=== PATIENT | female | born 1945 | race African-American/Black ===

== ENCOUNTER 2022-09-14 15:18 | Emergency (ER) | payer MEDICAID, MEDICARE, OTHER ==
[~2022-09-14] VITALS: Ht 167.6 cm; Wt 68.0 kg
[~2022-09-14 15:18] MED LIST: ASPI-867 PO; CLOP-31 PO; FURO40TA5 PO; ISOS20TA8 PO; LIP40 PO; LOSA100T33 PO; METF-416 PO; lantus
[2022-09-14 15:33] VITALS: BP 170/72; PULSE 86; RESP 16; TEMP 97.3; O2SAT 98
[2022-09-14 17:20] LABS: BASOPHILS % 0.6 % (0.0-2.0); EOSINOPHILS % 1.3 % (0.0-5.0); HEMATOCRIT. 31.3 % (36.0-48.0); HEMOGLOBIN. 10.6 g/dL (12.0-16.0); MEAN CORPUSCULAR HEMOGLOBIN 30.4 pg (28.0-32.0); MEAN CORPUSCULAR VOLUME 90.1 fL (81.0-99.0); NEUTROPHILS % 57.1 % (40.0-76.0); PLATELET 268 x1000/uL (130-400); RED BLOOD CELL COUNT 3.48 mill/uL (4.2-5.4); RED CELL DISTRIBUTION WIDTH 13.6 % (11.6-14.6)
[2022-09-14 17:29] LABS: CHLORIDE 111 mEq/L (98-107)
[2022-09-14] MEDS ORDERED: FAMOTIDINE 20MG TABLET PO ONE (18:45)
[2022-09-14] MEDS ORDERED: MAGNESIUM/ALUMINUM HYDROXIDE/SIMETHICONE 30ML UDC PO ONE (18:45)
[2022-09-14] MEDS ORDERED: MAGNESIUM/ALUMINUM HYDROXIDE/SIMETHICONE 30ML UDC PO NR (21:08)
[2022-09-14] MEDS ORDERED: FAMOTIDINE 20MG TABLET PO NR (21:08)
[2022-09-14] MEDS ORDERED: MAG-55 MT (21:32)
[2022-09-14] MEDS ORDERED: FAMO40TA70 MT (21:32)
== END 2022-09-14 22:48 | disposition left against medical advice (07) ==
LOC: ER 15:18
DX: Z53.21 Procedure and treatment not carried out due to patient leaving prior to being seen by health care provider (principal); I10 Essential (primary) hypertension; E11.9 Type 2 diabetes mellitus without complications; Z86.73 Personal history of transient ischemic attack (TIA), and cerebral infarction without residual deficits
CPT/HCPCS: 36415; 71045; 80053; 82962; 83880; 84484; 85025; 93005; 99284

== ENCOUNTER 2024-06-03 10:02 | Inpatient (IN) | payer OTHER, MEDICARE ==
[~2024-06-03] VITALS: Ht 175.3 cm; Wt 64.9 kg
[~2024-06-03 10:02] MED LIST changes: +ASPI-1160 PO; -ASPI-867 PO; +FAMO40TA70 MT; +LEVO25TA7 PO; +NITR100C MT
[2024-06-03] MEDS: LABETALOL 5MG/ML 4ML INJ IV NR (11:30)
[2024-06-03 12:00] LABS: BASOPHILS % 0.4 % (0.0-2.0); EOSINOPHILS % 1.6 % (0.0-5.0); MEAN CORPUSCULAR HGB CONC 32.3 g/dL (31.0-37.0); MEAN CORPUSCULAR VOLUME 89.8 fL (81.0-99.0); MEAN PLATELET VOLUME 7.3 fl (7.4-10.4); MONOCYTES % 4.6 % (2.0-8.0); NEUTROPHILS % 57.4 % (40.0-76.0); PLATELET 223 x1000/uL (130-400); RED BLOOD CELL COUNT 3.79 mill/uL (4.2-5.4); RED CELL DISTRIBUTION WIDTH 13.7 % (11.6-14.6); WHITE BLOOD COUNT 5.1 x1000/uL (4.5-11.0)
[2024-06-03 12:15] LABS: CHLORIDE 109 mEq/L (98-107); POTASSIUM 3.9 mEq/L (3.5-5.1); SODIUM 140 mEq/L (136-145)
[2024-06-03 12:16] LABS: CARBON DIOXIDE 24 mEq/L (21-32)
[2024-06-03 12:17] LABS: CALCIUM 9.1 mg/dL (8.7-10.4)
[2024-06-03 12:18] LABS: PROTHROMBIN TIME 10.7 sec (9.6-11.0)
[2024-06-03 12:21] LABS: CREATININE 1.3 mg/dL (0.6-1.0); GLUCOSE 192 mg/dL (70-105); TROPONIN I HIGH SENSITIVITY 11 ng/L (3.0-34); UREA NITROGEN BLOOD 14 mg/dL (9-23)
[2024-06-03 12:22] LABS: ETHANOL BLOOD < 10 mg/dL (<10)
[2024-06-03 14:29] LABS: CLARITY URINE CLEAR (CLEAR); COLOR URINE YELLOW (YELLOW); GLUCOSE URINE NEGATIVE (NEGATIVE); KETONES URINE NEGATIVE (NEGATIVE); LEUKOCYTE ESTERASE URINE 2+ (NEGATIVE); NITRITE URINE NEGATIVE (NEGATIVE); OCCULT BLOOD URINE NEGATIVE (NEGATIVE); PH URINE 7.5 (4.5-8.0); PROTEIN URINE TRACE (NEGATIVE); SPECIFIC GRAVITY URINE 1.008 (1.005-1.030); UROBILINOGEN URINE 0.2 E.U./dL (0.2-1.0)
[2024-06-03] MEDS: HYDRALAZINE 20MG/ML VIAL IV ONE (14:44)
[2024-06-03 14:50] LABS: TROPONIN I HIGH SENSITIVITY 12 ng/L (3.0-34)
[2024-06-03 14:52] LABS: SQUAMOUS EPITHELIAL CELL URINE 1+ /lpf (RARE/1+)
[2024-06-03 14:53] LABS: BACTERIA URINE 1+; WBC URINE 0-2 /hpf (0-2)
[2024-06-03] MEDS ORDERED: GUAIFENESIN 200MG/10ML SUGAR FREE UDC PO PRN (15:00)
[2024-06-03] MEDS ORDERED: DOCUSATE SODIUM 100MG CAPSULE PO PRN (15:00)
[2024-06-03] MEDS ORDERED: ONDANSETRON HCL 4MG/2ML INJ IV PRN (15:00)
[2024-06-03] MEDS ORDERED: ACETAMINOPHEN 325MG TABLET PO PRN ×2 (15:00)
[2024-06-03] MEDS ORDERED: IPRATROPIUM/ALBUTEROL 0.5-3(2.5)MG/3ML NEB HHN PRN (15:00)
[2024-06-03] MEDS ORDERED: DEXTROSE 50% WATER 50ML SYRINGE IV PRN (15:00)
[2024-06-03 15:14] LABS: *AMPHETAMINES SCREEN URINE NEGATIVE (NEGATIVE)
[2024-06-03 15:15] LABS: *BARBITURATES SCREEN URINE NEGATIVE (NEGATIVE); *BENZODIAZEPINES SCREEN URINE NEGATIVE (NEGATIVE); *COCAINE SCREEN URINE NEGATIVE (NEGATIVE); CANNABINOID URINE SCREEN NEGATIVE (NEGATIVE); ECSTASY MDMA SCREEN URINE NEGATIVE (NEGATIVE); METHADONE URINE SCREEN NEGATIVE (NEGATIVE); OPIATES URINE SCREEN NEGATIVE (NEGATIVE); PHENCYCLIDINE URINE SCREEN NEGATIVE (NEGATIVE)
[2024-06-03] MEDS: ISOSORBIDE MONONITRATE 30MG TABLET SR 24HR PO SCH (15:23)
[2024-06-03] MEDS: AMLODIPINE 5MG TABLET PO SCH (15:29)
[2024-06-03 16:15] LABS: FOLIC ACID (FOLATE) SERUM 13.56 ng/mL (>5.38); VITAMIN B12 SERUM 467 pg/mL (211-911)
[2024-06-03] MEDS: HYDRALAZINE 20MG/ML VIAL IV PRN (17:48)
[2024-06-03 20:30] VITALS: BP 165/72; PULSE 66; RESP 18; TEMP 36.1; O2SAT 99
[2024-06-03] MEDS: INSULIN LISPRO 100 UNITS/ML SUBCUT SCH (21:00)
[2024-06-03] MEDS: BLOOD SUGAR DIAGNOSTIC STRIP TEST SCH (21:09)
[2024-06-03] MEDS: ATORVASTATIN CALCIUM 40MG TABLET PO SCH (21:09)
[2024-06-03] MEDS: FAMOTIDINE 20MG TABLET PO SCH (21:09)
[2024-06-03] MEDS: LOSARTAN 100 MG TABLET PO SCH (21:09)
[2024-06-03 21:30] VITALS: BP 165/72; PULSE 66; RESP 18; TEMP 36.1
[2024-06-04] VITALS (11 sets, daily range): BP systolic 119–189; BP diastolic 49–100; PULSE 53–91; RESP 20; TEMP 36.5–37; O2SAT 95–98
[2024-06-04 00:15] LABS: TROPONIN I HIGH SENSITIVITY 14 ng/L (3.0-34)
[2024-06-04] MEDS: CLONIDINE 0.1MG TABLET PO PRN (05:23)
[2024-06-04] MEDS: CLOPIDOGREL 75MG TABLET PO SCH (09:36)
[2024-06-04] MEDS: ASPIRIN 81MG TABLET PO SCH (09:37)
[2024-06-04 11:10] LABS: BASOPHILS % 0.4 % (0.0-2.0); HEMATOCRIT. 36.3 % (36.0-48.0); HEMOGLOBIN. 11.5 g/dL (12.0-16.0); LYMPHOCYTES % 29.8 % (20.0-50.0); MEAN CORPUSCULAR HEMOGLOBIN 28.6 pg (28.0-32.0); MEAN CORPUSCULAR HGB CONC 31.7 g/dL (31.0-37.0); MEAN CORPUSCULAR VOLUME 90.2 fL (81.0-99.0); MEAN PLATELET VOLUME 7.6 fl (7.4-10.4); MONOCYTES % 6.7 % (2.0-8.0); NEUTROPHILS % 60.1 % (40.0-76.0); PLATELET 250 x1000/uL (130-400); RED BLOOD CELL COUNT 4.02 mill/uL (4.2-5.4); WHITE BLOOD COUNT 4.9 x1000/uL (4.5-11.0)
[2024-06-04 11:35] LABS: POTASSIUM 3.9 mEq/L (3.5-5.1)
[2024-06-04 11:37] LABS: CALCIUM 9.4 mg/dL (8.7-10.4)
[2024-06-04 11:41] LABS: CREATININE 1.2 mg/dL (0.6-1.0)
[2024-06-04] MEDS ORDERED: ASPIRIN 81MG EC TABLET PO SCH (14:30)
[2024-06-04] MEDS ORDERED: CLOPIDOGREL 75MG TABLET PO SCH (14:30)
[2024-06-04] MEDS: ATORVASTATIN CALCIUM 40MG TABLET PO SCH (20:57)
[2024-06-05] VITALS: BP 147/59; PULSE 78; RESP 20; TEMP 37; O2SAT 98
[2024-06-05 04:00] VITALS: BP_SYST 119; BP_SYST 168; BP_DIAS 55; BP_DIAS 73; PULSE 71; RESP 18; TEMP 36.9; TEMP 37; O2SAT 98
[2024-06-05 08:00] VITALS: BP 110/60; PULSE 64; RESP 20; TEMP 36.1; O2SAT 96
[2024-06-05] MEDS ORDERED: AMLODIPINE 10MG TABLET PO SCH (09:00)
[2024-06-05] MEDS: CLOPIDOGREL 75MG TABLET PO SCH (09:09)
[2024-06-05] MEDS: ASPIRIN 81MG EC TABLET PO SCH (09:09)
[2024-06-05 09:14] LABS: POTASSIUM 3.6 mEq/L (3.5-5.1)
[2024-06-05 09:15] LABS: CALCIUM 9.2 mg/dL (8.7-10.4)
[2024-06-05 09:20] LABS: CREATININE 1.1 mg/dL (0.6-1.0)
[2024-06-05 12:00] VITALS: BP 179/67; PULSE 55; RESP 18; TEMP 36.1; O2SAT 96
[2024-06-05 16:00] VITALS: BP 145/62; PULSE 79; RESP 18; TEMP 36; O2SAT 96
[2024-06-05] MEDS: ISOSORBIDE MONONITRATE 30MG TABLET SR 24HR PO SCH (17:07)
[2024-06-05 20:00] VITALS: BP 154/89; PULSE 80; RESP 17; TEMP 36; O2SAT 98
[2024-06-06] VITALS: BP 145/60; PULSE 77; RESP 18; TEMP 36.7; O2SAT 98
[2024-06-06 04:00] VITALS: BP 138/55; RESP 17; TEMP 36.6; O2SAT 97
[2024-06-06 07:22] LABS: CALCIUM 9.6 mg/dL (8.7-10.4); POTASSIUM 3.8 mEq/L (3.5-5.1)
[2024-06-06 07:27] LABS: CREATININE 1.1 mg/dL (0.6-1.0)
[2024-06-06 08:00] VITALS: BP 140/56; PULSE 70; RESP 20; TEMP 36.4; O2SAT 98
[2024-06-06] MEDS: AMLODIPINE 10MG TABLET PO SCH (09:01)
[2024-06-06 12:00] VITALS: BP 159/50; PULSE 61; RESP 18; TEMP 36.5; O2SAT 100
[2024-06-06 16:00] VITALS: BP 127/48; PULSE 61; RESP 20; TEMP 36.4; O2SAT 98
[2024-06-06] MEDS: ISOSORBIDE MONONITRATE 30MG TABLET SR 24HR PO SCH (16:54)
[2024-06-06] MEDS: LOSARTAN 100 MG TABLET PO SCH (16:54)
[2024-06-06] MEDS: INSULIN LISPRO 100 UNITS/ML SUBCUT SCH (16:58)
[2024-06-06 20:51] VITALS: BP 154/63; PULSE 74; RESP 18; TEMP 37; O2SAT 99
[2024-06-06] MEDS: INSULIN GLARGINE 100 UNITS/ML SUBCUT SCH (22:06)
[2024-06-07] VITALS: BP 138/70; PULSE 67; RESP 18; TEMP 36.9; O2SAT 98
[2024-06-07 04:00] VITALS: BP 146/57; PULSE 98; RESP 18; TEMP 37; O2SAT 98
[2024-06-07 07:03] LABS: BASOPHILS % 0.5 % (0.0-2.0); EOSINOPHILS % 2.4 % (0.0-5.0); HEMATOCRIT. 34.7 % (36.0-48.0); HEMOGLOBIN. 11.3 g/dL (12.0-16.0); LYMPHOCYTES % 48.4 % (20.0-50.0); MEAN CORPUSCULAR HEMOGLOBIN 29.2 pg (28.0-32.0); MEAN CORPUSCULAR HGB CONC 32.6 g/dL (31.0-37.0); MEAN CORPUSCULAR VOLUME 89.5 fL (81.0-99.0); MEAN PLATELET VOLUME 7.2 fl (7.4-10.4); MONOCYTES % 8.6 % (2.0-8.0); NEUTROPHILS % 40.1 % (40.0-76.0); PLATELET 232 x1000/uL (130-400); RED BLOOD CELL COUNT 3.88 mill/uL (4.2-5.4); RED CELL DISTRIBUTION WIDTH 13.6 % (11.6-14.6); WHITE BLOOD COUNT 4.4 x1000/uL (4.5-11.0)
[2024-06-07 08:00] VITALS: BP 130/58; PULSE 75; RESP 18; TEMP 36.4; O2SAT 98
[2024-06-07 08:42] LABS: CALCIUM 9.6 mg/dL (8.7-10.4); CHLORIDE 107 mEq/L (98-107); POTASSIUM 3.8 mEq/L (3.5-5.1); SODIUM 142 mEq/L (136-145)
[2024-06-07 08:43] LABS: CARBON DIOXIDE 26 mEq/L (21-32)
[2024-06-07 08:48] LABS: GLUCOSE 89 mg/dL (70-105)
[2024-06-07 08:49] LABS: UREA NITROGEN BLOOD 15 mg/dL (9-23)
[2024-06-07] MEDS: ISOSORBIDE MONONITRATE 60MG TABLET SR 24HR PO SCH (08:50)
[2024-06-07 08:51] LABS: PHOSPHORUS 4.4 mg/dL (2.5-4.9)
[2024-06-07 12:00] VITALS: BP 145/62; PULSE 100; RESP 19; TEMP 36.5; O2SAT 100
[2024-06-07 16:00] VITALS: BP 134/59; PULSE 72; RESP 18; TEMP 36.4; O2SAT 100
[2024-06-07 20:00] VITALS: BP 179/60; PULSE 79; RESP 19; TEMP 36.1; O2SAT 98
[2024-06-08] VITALS: BP 151/53; PULSE 58; RESP 20; TEMP 36.2; O2SAT 98
[2024-06-08 04:00] VITALS: BP 152/50; PULSE 72; RESP 20; TEMP 36.3; O2SAT 98
[2024-06-08 08:00] VITALS: BP 128/71; PULSE 77; RESP 18; TEMP 36.7; O2SAT 98
[2024-06-08 12:00] VITALS: BP 143/53; PULSE 67; RESP 19; TEMP 37.1; O2SAT 98
[2024-06-08] MEDS: LORAZEPAM 0.5MG TABLET PO PRN (12:44)
[2024-06-08 16:00] VITALS: BP 163/72; PULSE 70; RESP 18; TEMP 36.8; O2SAT 100
[2024-06-08 19:01] LABS: BASOPHILS % 0.4 % (0.0-2.0); EOSINOPHILS % 2.2 % (0.0-5.0); HEMATOCRIT. 32.9 % (36.0-48.0); HEMOGLOBIN. 10.8 g/dL (12.0-16.0); MEAN CORPUSCULAR HEMOGLOBIN 29.7 pg (28.0-32.0); MEAN CORPUSCULAR HGB CONC 32.7 g/dL (31.0-37.0); MEAN CORPUSCULAR VOLUME 90.6 fL (81.0-99.0); MEAN PLATELET VOLUME 7.3 fl (7.4-10.4); NEUTROPHILS % 41.4 % (40.0-76.0); PLATELET 253 x1000/uL (130-400); RED BLOOD CELL COUNT 3.64 mill/uL (4.2-5.4); RED CELL DISTRIBUTION WIDTH 13.4 % (11.6-14.6); WHITE BLOOD COUNT 5.1 x1000/uL (4.5-11.0)
[2024-06-08 19:07] LABS: CHLORIDE 108 mEq/L (98-107); POTASSIUM 3.9 mEq/L (3.5-5.1); SODIUM 142 mEq/L (136-145)
[2024-06-08 19:08] LABS: CALCIUM 9.6 mg/dL (8.7-10.4); CARBON DIOXIDE 27 mEq/L (21-32)
[2024-06-08 19:13] LABS: GLUCOSE 110 mg/dL (70-105); UREA NITROGEN BLOOD 16 mg/dL (9-23)
[2024-06-08 20:00] VITALS: BP 142/48; PULSE 61; RESP 20; TEMP 36.3; O2SAT 97
[2024-06-08] MEDS: ENOXAPARIN 60MG/0.6ML SYR SUBCUT SCH (21:18)
[2024-06-09] VITALS: BP 165/59; PULSE 68; RESP 20; TEMP 36.2; O2SAT 98
[2024-06-09 04:00] VITALS: BP 120/57; PULSE 60; RESP 20; TEMP 36.1; O2SAT 98
[2024-06-09 08:00] VITALS: BP 140/69; PULSE 71; RESP 18; TEMP 36.6; O2SAT 98
[2024-06-09 12:00] VITALS: BP 136/58; PULSE 67; RESP 17; TEMP 36.5; O2SAT 100
[2024-06-09 16:00] VITALS: BP 146/58; PULSE 67; RESP 18; TEMP 36.7; O2SAT 98
[2024-06-09 20:00] VITALS: BP 135/50; PULSE 67; RESP 20; TEMP 36.6; O2SAT 99
[2024-06-10] VITALS: BP 156/63; PULSE 64; RESP 19; TEMP 36.7; O2SAT 99
[2024-06-10 04:00] VITALS: BP 148/63; PULSE 59; RESP 19; TEMP 36.7; O2SAT 97
[2024-06-10 08:00] VITALS: BP 127/52; PULSE 71; RESP 18; TEMP 36.9; O2SAT 99
[2024-06-10 12:00] VITALS: BP 120/71; PULSE 72; RESP 18; TEMP 35.6; O2SAT 97
[2024-06-10] MEDS: ACETAMINOPHEN 500MG TABLET PO SCH (13:47)
[2024-06-10] MEDS: LIDOCAINE 5% PATCH TOP SCH ×2 (13:47)
[2024-06-10] MEDS: DICLOFENAC SODIUM 1% GEL 50GM TOP SCH (13:48)
[2024-06-10 16:00] VITALS: BP 126/52; PULSE 73; RESP 18; TEMP 35.9; O2SAT 98
[2024-06-10 20:00] VITALS: BP 161/63; PULSE 67; RESP 18; TEMP 36.9; O2SAT 98
[2024-06-10] MEDS: FAMOTIDINE 20MG TABLET PO SCH (21:15)
[2024-06-10] MEDS ORDERED: ERGO1250 PO (23:32)
[2024-06-10] MEDS ORDERED: METF-416 PO (23:33)
[2024-06-11] VITALS: BP 148/60; PULSE 70; RESP 18; TEMP 36.7; O2SAT 98
[2024-06-11 04:00] VITALS: BP 150/57; PULSE 66; RESP 18; TEMP 37; O2SAT 97
[2024-06-11 08:00] VITALS: BP 171/69; PULSE 77; RESP 18; TEMP 36.5; O2SAT 97
[2024-06-11] MEDS: ENOXAPARIN 40MG/0.4ML SYR SUBCUT SCH (09:17)
[2024-06-11 12:00] VITALS: BP 163/56; PULSE 63; RESP 18; TEMP 36.7; O2SAT 97
[2024-06-11 16:00] VITALS: BP 143/56; PULSE 68; RESP 18; TEMP 36.6; O2SAT 100
[2024-06-11 19:30] LABS: HEMATOCRIT 32.5 % (36.0-48.0); HEMOGLOBIN 10.7 g/dL (12.0-16.0); MEAN CORPUSCULAR HEMOGLOBIN 29.9 pg (28.0-32.0); MEAN CORPUSCULAR HGB CONC 32.8 g/dL (31.0-37.0); MEAN CORPUSCULAR VOLUME 91.1 fL (81.0-99.0); PLATELET 245 x1000/uL (130-400); RED BLOOD CELL COUNT 3.57 mill/uL (4.2-5.4); RED CELL DISTRIBUTION WIDTH 13.6 % (11.6-14.6); WHITE BLOOD COUNT 4.6 x1000/uL (4.5-11.0)
[2024-06-11 19:40] LABS: POTASSIUM 4.3 mEq/L (3.5-5.1)
[2024-06-11 19:42] LABS: CALCIUM 9.2 mg/dL (8.7-10.4)
[2024-06-11 19:46] LABS: CREATININE 1.1 mg/dL (0.6-1.0)
[2024-06-11 20:00] VITALS: BP 181/63; PULSE 78; RESP 18; TEMP 36.2; O2SAT 97
[2024-06-12] VITALS: BP 171/50; PULSE 58; RESP 18; TEMP 36.3; O2SAT 98
[2024-06-12 04:00] VITALS: BP 168/63; PULSE 74; RESP 18; TEMP 36.3; O2SAT 98
[2024-06-12 08:00] VITALS: BP 115/58; PULSE 56; RESP 18; TEMP 36.4; O2SAT 98
[2024-06-12] MEDS: ISOSORBIDE MONONITRATE 30MG TABLET SR 24HR PO SCH (08:30)
[2024-06-12 12:00] VITALS: BP 183/63; PULSE 60; RESP 17; TEMP 36.2; O2SAT 95
[2024-06-12 16:00] VITALS: BP 175/69; PULSE 65; RESP 18; TEMP 36.6; O2SAT 100
[2024-06-12 20:00] VITALS: BP 121/50; PULSE 65; RESP 18; TEMP 36.6; O2SAT 100
[2024-06-13] VITALS: BP 123/55; PULSE 59; RESP 17; TEMP 36.5; O2SAT 98
[2024-06-13 04:00] VITALS: BP 155/70; PULSE 67; RESP 16; TEMP 36.4; O2SAT 99
[2024-06-13 08:00] VITALS: BP 187/74; PULSE 60; RESP 18; TEMP 36.9; O2SAT 98
[2024-06-13 12:00] VITALS: BP 158/59; PULSE 62; RESP 18; TEMP 36.4; O2SAT 97
[2024-06-13 16:00] VITALS: BP 159/60; PULSE 74; RESP 20; TEMP 36.7
[2024-06-14] VITALS: BP 138/49; PULSE 63; RESP 18; TEMP 36.7; O2SAT 99
[2024-06-14 04:00] VITALS: BP 108/47; PULSE 61; RESP 17; TEMP 36.4; O2SAT 99
[2024-06-14 08:00] VITALS: BP 124/77; PULSE 57; RESP 20; TEMP 36.5; O2SAT 100
[2024-06-14 12:00] VITALS: BP 127/50; PULSE 62; RESP 20; TEMP 36.4; O2SAT 99
[2024-06-14 16:00] VITALS: BP 114/56; PULSE 63; RESP 20; TEMP 36.5; O2SAT 99
[2024-06-14 20:00] VITALS: BP 133/42; PULSE 84; RESP 17; TEMP 36.5; O2SAT 99
[2024-06-15] VITALS: BP 152/51; PULSE 65; RESP 18; TEMP 36.6; O2SAT 99
[2024-06-15 04:00] VITALS: BP 164/62; PULSE 63; RESP 18; TEMP 36.5; O2SAT 98
[2024-06-15 08:00] VITALS: BP 176/64; PULSE 65; RESP 18; RESP 20; TEMP 36.9; O2SAT 100
[2024-06-15 12:00] VITALS: BP 128/58; PULSE 67; RESP 18; TEMP 36.4; O2SAT 100
[2024-06-15 16:00] VITALS: BP 97/52; PULSE 55; RESP 18; TEMP 36.4; O2SAT 99
[2024-06-15] MEDS ORDERED: HYDRALAZINE 10 MG in SODIUM CHLORIDE 0.9% 49.5 ML IV PRN (18:00)
[2024-06-15 20:00] VITALS: BP 140/56; PULSE 65; RESP 19; TEMP 36.5; O2SAT 98
[2024-06-16] VITALS: BP 165/55; PULSE 60; RESP 19; TEMP 36.4; O2SAT 99
[2024-06-16 04:00] VITALS: BP 172/59; PULSE 62; RESP 18; TEMP 36.3; O2SAT 98
[2024-06-16 08:00] VITALS: BP 148/61; PULSE 60; RESP 18; TEMP 36.7; O2SAT 98
[2024-06-16 12:00] VITALS: BP 140/62; PULSE 66; RESP 18; TEMP 36.8; O2SAT 98
[2024-06-16 16:00] VITALS: BP 123/50; PULSE 59; RESP 18; TEMP 36.6; O2SAT 98
[2024-06-16 20:00] VITALS: BP 163/61; PULSE 66; RESP 20; TEMP 36.5; O2SAT 99
[2024-06-16] MEDS: HYDRALAZINE HCL 10MG TABLET PO SCH (21:50)
[2024-06-17] VITALS: BP 153/55; PULSE 63; RESP 19; TEMP 36.5; O2SAT 99
[2024-06-17 04:00] VITALS: BP 162/47; PULSE 59; RESP 19; TEMP 36.5; O2SAT 99
[2024-06-17 08:00] VITALS: BP 173/66; PULSE 61; RESP 18; TEMP 36.7; O2SAT 96
[2024-06-17 12:00] VITALS: BP 160/55; PULSE 63; RESP 18; TEMP 36.5; O2SAT 96
[2024-06-17 13:09] LABS: POTASSIUM 4.5 mEq/L (3.5-5.1)
[2024-06-17 13:10] LABS: CALCIUM 9.5 mg/dL (8.7-10.4)
[2024-06-17 13:14] LABS: CREATININE 1.1 mg/dL (0.6-1.0)
[2024-06-17 16:00] VITALS: BP 149/69; PULSE 52; RESP 18; TEMP 36.4; O2SAT 99
[2024-06-17 20:00] VITALS: BP 154/62; PULSE 62; RESP 16; TEMP 36.9; O2SAT 97
[2024-06-18] VITALS: BP 142/80; PULSE 81; RESP 18; TEMP 36.8; O2SAT 98
[2024-06-18 04:00] VITALS: BP 173/65; PULSE 62; RESP 18; TEMP 36.6; O2SAT 97
[2024-06-18 07:22] LABS: POTASSIUM 4.7 mEq/L (3.5-5.1)
[2024-06-18 07:23] LABS: CALCIUM 9.9 mg/dL (8.7-10.4)
[2024-06-18 07:27] LABS: CREATININE 1.2 mg/dL (0.6-1.0)
[2024-06-18 07:57] LABS: HEMATOCRIT 36.4 % (36.0-48.0); MEAN CORPUSCULAR HEMOGLOBIN 30.3 pg (28.0-32.0); MEAN CORPUSCULAR HGB CONC 32.9 g/dL (31.0-37.0); MEAN CORPUSCULAR VOLUME 91.9 fL (81.0-99.0); PLATELET 255 x1000/uL (130-400); RED BLOOD CELL COUNT 3.96 mill/uL (4.2-5.4); RED CELL DISTRIBUTION WIDTH 14.4 % (11.6-14.6); WHITE BLOOD COUNT 5.1 x1000/uL (4.5-11.0)
[2024-06-18 08:00] VITALS: BP 166/56; PULSE 60; RESP 18; TEMP 36.4; O2SAT 99
[2024-06-18 12:00] VITALS: BP 177/50; PULSE 67; RESP 18; TEMP 36.6; O2SAT 100
[2024-06-18] MEDS: HYDRALAZINE HCL 25MG TABLET PO SCH (13:38)
[2024-06-18 16:00] VITALS: BP 134/55; PULSE 71; RESP 18; TEMP 36.4; O2SAT 97
[2024-06-18 20:00] VITALS: BP 125/53; PULSE 66; RESP 19; TEMP 36.4; O2SAT 99
[2024-06-19] VITALS: BP 154/40; PULSE 57; RESP 18; TEMP 36.7; O2SAT 98
[2024-06-19 04:00] VITALS: BP 128/68; PULSE 74; RESP 18; TEMP 36.5; O2SAT 98
[2024-06-19 08:00] VITALS: BP 132/62; PULSE 75; RESP 17; TEMP 36.7; O2SAT 99
[2024-06-19 12:00] VITALS: BP 166/66; PULSE 75; RESP 18; TEMP 36.7; O2SAT 99
[2024-06-19 16:00] VITALS: BP 139/60; PULSE 69; RESP 17; TEMP 36.9; O2SAT 98
[2024-06-19 20:00] VITALS: BP 130/59; PULSE 73; RESP 17; TEMP 36.5; O2SAT 98
[2024-06-20] VITALS: BP 151/56; PULSE 69; RESP 20; TEMP 37; O2SAT 99
[2024-06-20 04:00] VITALS: BP 150/62; PULSE 69; RESP 19; TEMP 36.6; O2SAT 100
[2024-06-20 08:00] VITALS: BP 170/92; PULSE 76; RESP 18; TEMP 36.7; O2SAT 99
[2024-06-20 12:00] VITALS: BP 130/54; PULSE 70; RESP 20; TEMP 36.8; O2SAT 99
[2024-06-20 16:00] VITALS: BP 118/60; PULSE 78; RESP 20; TEMP 36.1
[2024-06-20 20:00] VITALS: BP 127/55; PULSE 66; RESP 17; TEMP 36.4; O2SAT 98
[2024-06-20] MEDS: HYDRALAZINE HCL 50MG TABLET PO SCH (21:14)
[2024-06-21] VITALS: BP 119/54; PULSE 60; RESP 19; TEMP 36.6; O2SAT 100
[2024-06-21 04:00] VITALS: BP 144/56; PULSE 64; RESP 20; TEMP 36.7; O2SAT 99
[2024-06-21 08:00] VITALS: BP 161/55; PULSE 68; RESP 18; TEMP 36.8; O2SAT 99
[2024-06-21 12:00] VITALS: BP 133/58; PULSE 65; RESP 18; TEMP 36.6; O2SAT 99
[2024-06-21 16:00] VITALS: BP 148/58; PULSE 60; RESP 18; TEMP 36.6; O2SAT 99
[2024-06-21 20:00] VITALS: BP 125/55; PULSE 78; RESP 18; TEMP 36.7; O2SAT 95
[2024-06-22 04:00] VITALS: BP 130/60; PULSE 70; RESP 18; TEMP 36.5; O2SAT 96
[2024-06-22 08:00] VITALS: BP 147/58; PULSE 65; RESP 19; TEMP 36.8; O2SAT 99
[2024-06-22 12:00] VITALS: BP 136/59; PULSE 67; RESP 19; TEMP 36.8; O2SAT 98
[2024-06-22 15:15] VITALS: BP 130/60; PULSE 68; RESP 20; TEMP 36.7; O2SAT 98
[2024-06-22 16:00] VITALS: BP 130/66; PULSE 66; RESP 19; TEMP 36.8; O2SAT 98
[2024-06-22 20:00] VITALS: BP 135/56; PULSE 69; RESP 18; TEMP 36.8; O2SAT 98
[2024-06-23] VITALS: BP 122/50; PULSE 69; RESP 20; TEMP 36.5; O2SAT 100
[2024-06-23 04:00] VITALS: BP 152/65; PULSE 71; RESP 19; TEMP 36.7; O2SAT 99
[2024-06-23 08:00] VITALS: BP 148/50; PULSE 72; RESP 18; TEMP 36.7; O2SAT 97
[2024-06-23 08:09] LABS: BASOPHILS % 0.5 % (0.0-2.0); HEMATOCRIT. 32.3 % (36.0-48.0); HEMOGLOBIN. 10.6 g/dL (12.0-16.0); LYMPHOCYTES % 42.6 % (20.0-50.0); MEAN CORPUSCULAR HEMOGLOBIN 30.2 pg (28.0-32.0); MEAN CORPUSCULAR HGB CONC 32.9 g/dL (31.0-37.0); MEAN PLATELET VOLUME 7.5 fl (7.4-10.4); MONOCYTES % 5.4 % (2.0-8.0); NEUTROPHILS % 49.5 % (40.0-76.0); PLATELET 235 x1000/uL (130-400); RED BLOOD CELL COUNT 3.52 mill/uL (4.2-5.4); RED CELL DISTRIBUTION WIDTH 14.7 % (11.6-14.6); WHITE BLOOD COUNT 5.1 x1000/uL (4.5-11.0)
[2024-06-23 08:18] LABS: POTASSIUM 4.3 mEq/L (3.5-5.1)
[2024-06-23 08:24] LABS: CREATININE 1.3 mg/dL (0.6-1.0)
[2024-06-23 12:00] VITALS: BP 130/58; PULSE 70; RESP 18; TEMP 36.7; O2SAT 98
[2024-06-23] MEDS ORDERED: HYDRALAZINE HCL 10MG TABLET PO SCH (14:00)
[2024-06-23] MEDS: LOSARTAN 50 MG TABLET PO SCH (14:12)
[2024-06-23 16:00] VITALS: BP 126/59; PULSE 72; RESP 19; TEMP 36.7; O2SAT 98
[2024-06-23 20:00] VITALS: BP 137/55; PULSE 67; RESP 18; TEMP 36.4; O2SAT 99
[2024-06-24] VITALS: BP 135/88; PULSE 79; RESP 19; TEMP 36.3; O2SAT 97
[2024-06-24 04:00] VITALS: BP 121/59; PULSE 70; RESP 19; TEMP 36.3; O2SAT 100
[2024-06-24 08:00] VITALS: BP 145/64; PULSE 70; RESP 20; TEMP 36.4; O2SAT 100
[2024-06-24 12:00] VITALS: BP 173/50; PULSE 72; RESP 20; TEMP 36.3; O2SAT 98
[2024-06-24 16:00] VITALS: BP 144/63; PULSE 68; RESP 20; TEMP 36.2; O2SAT 99
[2024-06-24 20:00] VITALS: BP 126/63; PULSE 71; RESP 19; TEMP 36.7; O2SAT 100
[2024-06-25] VITALS: BP 136/59; PULSE 69; RESP 19; TEMP 36.5; O2SAT 97
[2024-06-25 04:00] VITALS: BP 131/56; PULSE 80; RESP 19; TEMP 36.4; O2SAT 100
[2024-06-25 08:00] VITALS: BP 109/64; PULSE 63; RESP 18; TEMP 36.4; O2SAT 98
[2024-06-25 12:00] VITALS: BP 147/63; PULSE 67; RESP 17; TEMP 36.1; O2SAT 98
[2024-06-25] MEDS ORDERED: ISOS30TA91 PO (14:46)
[2024-06-25] MEDS ORDERED: LOSA50TA41 PO (14:46)
[2024-06-25] MEDS ORDERED: LIP40 PO (14:46)
[2024-06-25] MEDS ORDERED: AMLO10TA80 PO (14:46)
[2024-06-25] MEDS ORDERED: ASPI-1406 PO (14:46)
[2024-06-25] MEDS ORDERED: CLOP-31 PO (14:46)
[2024-06-25 16:00] VITALS: BP 156/61; PULSE 61; RESP 18; TEMP 36.2; O2SAT 98
[2024-06-25 20:00] VITALS: BP 158/83; PULSE 71; RESP 18; TEMP 36.9; O2SAT 100
[2024-06-26] VITALS: BP 143/47; PULSE 61; RESP 18; TEMP 36.3; O2SAT 98
[2024-06-26 04:00] VITALS: BP 122/56; PULSE 65; RESP 19; TEMP 36.2; O2SAT 98
[2024-06-26 08:00] VITALS: BP 112/64; PULSE 87; RESP 18; TEMP 36.7; O2SAT 97
[2024-06-26 12:00] VITALS: BP 124/53; PULSE 72; RESP 17; TEMP 36.7; O2SAT 98
[2024-06-26 16:00] VITALS: BP 157/58; PULSE 64; RESP 18; TEMP 36.1; O2SAT 96
[2024-06-26 20:00] VITALS: BP 152/59; PULSE 61; RESP 19; TEMP 36.5; O2SAT 98
[2024-06-27] VITALS: BP 120/60; PULSE 64; RESP 20; TEMP 36.6; O2SAT 98
[2024-06-27 04:00] VITALS: BP 134/66; PULSE 72; RESP 18; TEMP 36.4; O2SAT 97
[2024-06-27 08:00] VITALS: BP 163/64; PULSE 69; RESP 19; TEMP 36.3; O2SAT 98
[2024-06-27 12:00] VITALS: BP 179/60; PULSE 78; RESP 19; TEMP 36.7; O2SAT 97
[2024-06-27] MEDS: CLONIDINE 0.1MG TABLET PO PRN (12:42)
[2024-06-27 13:22] VITALS: BP 179/60; PULSE 78; TEMP 98; O2SAT 98
== END 2024-06-27 13:55 | disposition home or self-care (01) | DRG 64 ==
LOC: ER 10:45 → EDBEDREQSVC 16:18 → 8WST 20:53 → 8EST 06-15 17:39 → UNDODISIN 06-25 18:22
PROVIDERS: ADMIT Hospitalist; ATTEND Hospitalist
DX: I63.9 Cerebral infarction, unspecified (principal); G82.50 Quadriplegia, unspecified; I16.1 Hypertensive emergency; N17.9 Acute kidney failure, unspecified; I69.354 Hemiplegia and hemiparesis following cerebral infarction affecting left non-dominant side; J98.11 Atelectasis; G93.49 Other encephalopathy; E11.65 Type 2 diabetes mellitus with hyperglycemia; I11.0 Hypertensive heart disease with heart failure; I50.9 Heart failure, unspecified; D64.9 Anemia, unspecified; J44.9 Chronic obstructive pulmonary disease, unspecified; R29.704 NIHSS score 4; I25.10 Atherosclerotic heart disease of native coronary artery without angina pectoris; R13.10 Dysphagia, unspecified; R53.81 Other malaise; F80.9 Developmental disorder of speech and language, unspecified; Z86.718 Personal history of other venous thrombosis and embolism; Z95.5 Presence of coronary angioplasty implant and graft; Z79.82 Long term (current) use of aspirin; Z79.4 Long term (current) use of insulin; Z79.899 Other long term (current) drug therapy; Z91.A48 Caregiver's other noncompliance with patient's medication regimen for other reason; Z79.02 Long term (current) use of antithrombotics/antiplatelets; Z79.84 Long term (current) use of oral hypoglycemic drugs
CPT/HCPCS: 36415; 70551; 71045; 80048; 80061; 80305; 80320; 81003; 82607; 82746; 82962; 83036; 83735; 84100; 84484; 85025; 85027; 92523; 92610; 93005; 93306; 93970; 97110; 97112; 97116; 97162; 97166; 97168; 97530; 97535; 99285; A4606; J0360; J1650; J1815; J3490; G0480